=== PATIENT | male | born 1985 | race Two or more races ===

== ENCOUNTER 2017-04-05 10:05 | Emergency (ER) | payer OTHER ==
[~2017-04-05] VITALS: Ht 185.4 cm; Wt 80.7 kg
[2017-04-05] MEDS ORDERED: TORADOL IM STA ×2 (10:10→10:14)
[2017-04-05] MEDS ORDERED: DECADRON IM STA ×2 (10:10→10:14)
--- NOTE | 2017-04-05 10:17 | ER.PDOC ---
General Chief Complaint: Requesting Medical Care Stated Complaint: R SHOULDER PAIN Time seen by MD: 10:09 Source: patient Exam Limitations: no limitations History of Present Illness Initial Comments R shoulder injury Occurred: this morning Where: home Severity: mild Modifying Factors: pain on movement Allergies: Coded Allergies: No Known Allergies (Unverified , 10/25/16) Home Meds No Active Prescriptions or Reported Meds Past Medical History Surgical History: no surgical history Results/Orders Results/Orders Administered Medications Medications (Trade) Dose Ordered Sig/Kelly Route PRN Reason Start Time Stop Time Status Last Admin Dose Admin Dexamethasone Sodium Phosphate (Decadron) 4 mg STAT STAT IM 04/05/17 10:10 04/05/17 10:11 UNV 04/05/17 10:24 Ketorolac Tromethamine (Toradol) 60 mg STAT STAT IM 04/05/17 10:10 04/05/17 10:11 UNV 04/05/17 10:24 Progress Progress toradol decadron im check shoulder EKG/XRAY/CT/US XRAY: XRAY Comments: shoulder neg Departure Time of Disposition: 10:46 Disposition: 01 HOME, SELF-CARE Impression: Primary Impression: Right shoulder strain Condition: Stable Referrals: PCP,UNKNOWN (PCP) PRIMARY CARE PROVIDER Additional Instructions: avni faye #[id number] Scripts No Active Prescriptions or Reported Meds EDITH BAGLEY Dr., MD Apr 05, 2017 10:17
--- NOTE | 2017-04-05 10:17 | NUR ---
ARRIVAL PATIENT ARRIVED TO ED4 AMBULATORY WITH FAMILY, C/O OF RIGHT SHOULDER PAIN FOR ONE WEEK, ATTEMPTED TO TREAT HIMSELF AT HOME WITH OUT RELIEF, PAIN KEEPING HIM UP AT NIGHT, DECIDED TO COME TO ED FOR FURTHER EVAL.
[2017-04-05] MEDS ORDERED: TORADOL ONE (10:19)
[2017-04-05] MEDS ORDERED: DECADRON ONE (10:19)
[2017-04-05 11:14] VITALS: BP 143/57
== END 2017-04-05 11:10 | disposition home or self-care (01) ==
LOC: ER 10:05
DX: S46.911A Strain of unspecified muscle, fascia and tendon at shoulder and upper arm level, right arm, initial encounter (principal); X58.XXXA Exposure to other specified factors, initial encounter; Y93.89 Activity, other specified; Y92.009 Unspecified place in unspecified non-institutional (private) residence as the place of occurrence of the external cause; Y99.8 Other external cause status
CPT/HCPCS: 73030; 96372 ×2; 99284; J1100; J1885